=== PATIENT | male | born 1975 | race Caucasian/White ===

== ENCOUNTER 2016-06-13 13:01 | Outpatient (CLI) | payer MEDICARE, MEDICAID | END 2016-06-13 13:02 | disposition home or self-care (01) | DX: R07.9 Chest pain, unspecified (principal) ==

== ENCOUNTER 2016-08-25 13:19 | Emergency (ER) | payer MEDICARE, MEDICAID ==
--- NOTE | 2016-08-25 14:35 | ED Physician Documentation ---
History of Present Illness - Stated complaint Stated Complaint: FEVER/HEAD PRESSURE - Chief complaint Chief Complaint: Fever - History obtained from History obtained from: Patient - History of Present Illness Timing: How many days ago (3) Pain level max: 4 Pain level now: 4 Improved by: rest Worsened by: coughing - Additonal information Additional information: sinus pressure x 3 days. diffuse headache. fever to 101 last night. Took ibuprofen and dayquil, as well as sudafed. States not helping. [facility] was hospitalized 4-5 years ago for unknown febrile illness. Review of Systems Constitutional: reports: Fever Ears: denies: Ear pain Nose: reports: Sinus pressure / pain Throat: denies: Sore throat Cardiac: denies: Chest pain / pressure Respiratory: reports: Cough. denies: Hemoptysis, Wheezing GI: reports: Vomiting (once). denies: Abdominal Pain, Diarrhea : denies: Dysuria, Frequency, Hesitancy Skin: denies: Rash Musculoskeletal: reports: Neck pain (states neck is sore), Back pain (chronic) Neurologic: denies: Focal weakness, Numbness, Confused, Altered mental status, Head injury, LOC PD PAST MEDICAL HISTORY - Past Medical History Past Medical History: Yes Musculoskeletal: Chronic back pain Other Past Medical History: prior methadone and heroic ujse, none for 4 years - Past Surgical History Past Surgical History: Yes General: Appendectomy - Present Medications Home Medications: Ambulatory Orders Medication Instructions Recorded Confirmed Buprenorphine HCl/Naloxone HCl 1 tab PO DAILY 10/30/15 08/25/16 [Suboxone 4 mg-1 mg Sl Film] Azithromycin [Zithromax] 0 mg PO DAILY #6 tablet 08/25/16 - Allergies Allergies/Adverse Reactions: Allergies Allergy/AdvReac Type Severity Reaction Status Date / Time No Known Drug Allergies Allergy Verified 10/30/15 22:19 - Social History Does the pt smoke?: Yes Smoking Status: Current every day smoker Does the pt drink ETOH?: No Does the pt have substance abuse?: No - Immunizations Immunizations are current?: Yes - POLST Patient has POLST: No PD ED PE NORMAL - Vitals Vital signs reviewed: Yes - General General: Alert and oriented X 3, No acute distress, Well developed/nourished - HEENT HEENT: PERRL, Ears normal, Moist mucous membranes, Pharynx benign - Neck Neck: Supple, no meningeal sign, No adenopathy - Cardiac Cardiac: RRR, Strong equal pulses - Respiratory Respiratory: No respiratory distress, Other (Rhonchi in the left upper and lower lobes. Did not clear with cough. o/w normal) - Abdomen Abdomen: Soft, Non tender, Non distended - Back Back: No CVA TTP, No spinal TTP - Derm Derm: Warm and dry, No rash - Extremities Extremities: No edema - Neuro Neuro: Alert and oriented X 3 - Psych Psych: Normal mood, Normal affect Results - Vitals Vitals: Vital Signs - 24 hr 08/25/16 08/25/16 13:23 15:08 Temperature 37.1 C Heart Rate 123 H 86 Respiratory 18 16 Rate Blood Pressure 143/84 H 129/73 O2 Saturation 98 98 Oxygen O2 Source Room air - Labs Labs: Laboratory Tests 08/25/16 08/25/16 14:50 14:50 WBC 8.6 RBC 4.17 L Hgb 12.6 L Hct 36.0 L MCV 86.2 MCH 30.1 MCHC 35.0 RDW 14.2 Plt Count 152 MPV 9.0 Neut # 5.3 Lymph # 1.8 [place] # 1.1 H Eos # 0.3 Baso # 0.1 Absolute Nucleated RBC 0.00 Nucleated RBCs 0.0 Sodium 135 Potassium 4.2 Chloride 100 L Carbon Dioxide 26 Anion Gap 9.0 BUN 10 Creatinine 0.8 Estimated GFR (MDRD) 108 Glucose 95 Calcium 9.0 Total Bilirubin 0.5 AST 17 ALT 23 Alkaline Phosphatase 50 Total Protein 8.2 Albumin 3.8 Globulin 4.4 H Albumin/Globulin Ratio 0.9 L Lipase 26 - Rads (name of study) cxr Radiology: Prelim report reviewed, EMP read contemporaneously, See rad report ( Left upper lobe pneumonia) PD MEDICAL DECISION MAKING - ED course Complexity details: reviewed results, re-evaluated patient, considered differential, d/w patient ED course: Patient is a 41-year-old male who presents to the emergency department with fevers and cough. Found to have a left upper lobe pneumonia. Feels better after IV fluids. Will place on antibiotics for home and have him follow-up with his doctor. He will return if he worsens. No evidence of sepsis, pulmonary embolus. Patient is very well-appearing, nontoxic. Patient counseled regarding signs and symptoms for which I believe and urgent re- evaluation would be necessary. Patient with good understanding of and agreement to plan and is comfortable going home at this time This document was made in part using voice recognition software. While efforts are made to proofread this document, sound alike and grammatical errors may occur. Departure - Departure Disposition: 01 Home, Self Care Clinical Impression: Pneumonia Qualifiers: Pneumonia type: due to unspecified organism Laterality: left Lung location: upper lobe of lung Qualified Code(s): J18.1 - Lobar pneumonia, unspecified organism Condition: Good Instructions: ED Pneumonia Adult Follow-Up: Provider,Other [Primary Care Provider] - Within 1 week Prescriptions: Azithromycin [Zithromax] 0 mg PO DAILY #6 tablet Comments: Take all antibiotics until gone. Return if you worsen. Discharge Date/Time: 08/25/16 15:45
[2016-08-25] MEDS ORDERED: SODIUM CHLORIDE 0.9% 2,000 ML IV ONE (14:37)
[2016-08-25 15:08] VITALS: BP 129/73
[2016-08-25 15:10] LABS: BASOPHILS # (AUTO) 0.1 10^3/uL (0.0-0.1); BASOPHILS % (AUTO) 1.5 %; EOSINOPHILS # (AUTO) 0.3 10^3/uL (0.0-0.7); EOSINOPHILS % (AUTO) 3.3 %; HGB - HEMOGLOBIN 12.6 g/dL (14.0-18.0); LYMPHOCYTES # (AUTO) 1.8 10^3/uL (1.5-3.5); LYMPHOCYTES % (AUTO) 21.2 %; MEAN CORPUSCULAR HEMOGLOBIN 30.1 pg (27.0-31.0); MEAN CORPUSCULAR VOLUME 86.2 fL (80.0-94.0); MONOCYTES # (AUTO) 1.1 10^3/uL (0.0-1.0); NEUTROPHILS # (AUTO) 5.3 10^3/uL (1.5-6.6); RED BLOOD COUNT 4.17 10^6/uL (4.70-6.10); RED CELL DISTRIBUTION WIDTH 14.2 % (12.0-15.0); UNCORRECTED WHITE BLOOD COUNT 8.6 x10^3/uL; WHITE BLOOD COUNT 8.6 x10^3/uL (4.8-10.8)
--- NOTE | 2016-08-25 15:14 | XRAY Preliminary Report ---
Exam: XR Chest 2 View PA/LAT IMPRESSION: New left upper lobe pneumonia. [facility] SITE ID: [id number]
[2016-08-25 15:16] LABS: ALBUMIN/GLOBULIN RATIO 0.9 (1.0-2.2); BILIRUBIN,TOTAL 0.5 mg/dL (0.2-1.0); CREATININE 0.8 mg/dL (0.6-1.2); POTASSIUM 4.2 mmol/L (3.5-5.0); TOTAL PROTEIN 8.2 g/dL (6.7-8.2)
--- NOTE | 2016-08-25 15:17 | XRAY Report ---
EXAM: CHEST RADIOGRAPHY EXAM DATE: 08/25/2016 03:07 PM. CLINICAL HISTORY: Cough, fever. COMPARISON: 06/13/2016. TECHNIQUE: 2 views. FINDINGS: Lungs/Pleura: New left upper lobe consolidation consistent with pneumonia. Right lung is clear. No pl eural effusion or pneumothorax. Mediastinum: Heart and mediastinal contours are unremarkable. Other: None. IMPRESSION: New left upper lobe pneumonia. [facility] Referring Provider Line: [phone] SITE ID: [id number]
== END 2016-08-25 15:45 | disposition home or self-care (01) ==
LOC: ED 13:19
DX: J18.9 Pneumonia, unspecified organism (principal); F17.200 Nicotine dependence, unspecified, uncomplicated
CPT/HCPCS: 36415; 71020; 80053; 83690; 85025; 96360; 99283; 99284

== ENCOUNTER 2018-01-21 13:27 | Emergency (ER) | payer MEDICARE, MEDICAID ==
[2018-01-21 13:38] VITALS: BP 135/101
[2018-01-21] MEDS ORDERED: KETOROLAC 60 MG/2 ML VIAL IM STA (13:46)
--- NOTE | 2018-01-21 13:49 | ED Physician Documentation ---
PD HPI BACK INJURY - Stated complaint Stated Complaint: BACK PX - History obtained from History obtained from: Patient - History of Present Illness Location: Other (He was helping someone move a bed a few days ago and developed gradual onset right-sided low back pain that is worse with bending and twisting and he feels like it locking up on him every once in a while.) Review of Systems Constitutional: denies: Fever, Chills GI: denies: Abdominal Pain, Nausea, Vomiting Musculoskeletal: denies: Neck pain PD PAST MEDICAL HISTORY - Past Medical History Musculoskeletal: Chronic back pain - Past Surgical History Past Surgical History: Yes General: Appendectomy - Present Medications Home Medications: Ambulatory Orders Medication Instructions Recorded Confirmed Buprenorphine HCl/Naloxone HCl 1 tab PO DAILY 10/30/15 01/21/18 [Suboxone 4 mg-1 mg Sl Film] Cyclobenzaprine [Flexeril] 10 mg PO TID PRN #15 tablet 01/21/18 Meloxicam [Mobic] 7.5 mg PO BID PRN #20 tablet 01/21/18 - Allergies Allergies/Adverse Reactions: Allergies Allergy/AdvReac Type Severity Reaction Status Date / Time No Known Drug Allergies Allergy Verified 01/21/18 13:38 - Social History Does the pt smoke?: Yes Smoking Status: Current every day smoker Does the pt drink ETOH?: No Does the pt have substance abuse?: No - Immunizations Immunizations are current?: Yes - POLST Patient has POLST: No PD ED PE NORMAL - Vitals Vital signs reviewed: Yes - General General: Alert and oriented X 3 (Winces with motion, comfortable at rest.) - Abdomen Abdomen: Soft, Non tender - Back Back: No spinal TTP, Other ( Tender to the right paralumbar musculature. Some wincing especially with twisting of the lumbar area.The patient has equal and normal Achilles and patellar reflexes bilaterally. Normal sensation in all areas of the legs. Patient denies saddle anesthesia. Normal strength in flexion-extension at the ankles, knees, and flexion of the hips.) - Neuro Neuro: Alert and oriented X 3, Normal speech Results - Vitals Vitals: Vital Signs - 24 hr 01/21/18 13:35 Temperature 37.0 C Heart Rate 75 Respiratory 18 Rate Blood Pressure 135/101 H O2 Saturation 97 Oxygen O2 Source Room air PD MEDICAL DECISION MAKING - ED course ED course: This patient has seemingly uncomplicated musculoskeletal back pain. The patient has no "red flags." Specifically denies IV drug use, fevers, incontinence, saddle anesthesia. Spinal epidural abscess was considered, given that the patient has no fever, is not diabetic, has no spinal tenderness, does not use IV drugs, and has no bilateral neurologic symptoms, the diagnosis of spinal epidural abscess is considered exceedingly unlikely. Departure - Departure Disposition: 01 Home, Self Care Clinical Impression: Back strain Qualifiers: Encounter type: initial encounter Qualified Code(s): S39.012A - Strain of muscle, fascia and tendon of lower back, initial encounter Condition: Good Record reviewed to determine appropriate education?: Yes Instructions: ED Spasm Back No Trauma Prescriptions: Cyclobenzaprine [Flexeril] 10 mg PO TID PRN #15 tablet PRN Reason: Spasms Meloxicam [Mobic] 7.5 mg PO BID PRN #20 tablet PRN Reason: Pain Comments: Call your doctor to arrange a follow-up appointment, make the next available appointment. In the interim, return anytime if worse or if new symptoms develop. Your blood pressure was elevated today on check into the emergency department. This does not mean that you have hypertension, it is a common phenomenon to come to the emergency department and have elevated blood pressure. I recommend that you see your primary care physician within the week to have it rechecked when you are feeling better.
== END 2018-01-21 13:56 | disposition home or self-care (01) ==
LOC: ED 13:27
DX: S39.012A Strain of muscle, fascia and tendon of lower back, initial encounter (principal); X50.9XXA Other and unspecified overexertion or strenuous movements or postures, initial encounter; R03.0 Elevated blood-pressure reading, without diagnosis of hypertension; G89.29 Other chronic pain; F17.200 Nicotine dependence, unspecified, uncomplicated
CPT/HCPCS: 96372; 99283

== ENCOUNTER 2018-04-16 15:39 | Emergency (ER) | payer MEDICARE, MEDICAID ==
[2018-04-16] MEDS ORDERED: ONDANSETRON ODT 4 MG TABLET TL STA (16:28)
[2018-04-16] MEDS ORDERED: NAPROXEN 250 MG TABLET PO STA (16:28)
[2018-04-16] MEDS ORDERED: ALBUTEROL NEB 2.5 MG/3 ML INH STA (17:07)
[2018-04-16] MEDS ORDERED: DEXAMETHASONE 10 MG/ML VIAL PO STA (17:07)
--- NOTE | 2018-04-16 17:12 | ED Physician Documentation ---
PD HPI URI - Stated complaint Stated Complaint: FLU SYMPTOMS - Chief complaint Chief Complaint: Resp - Additional information Additional information: 43-year-old male presents the emergency department with nasal congestion, cough, body aches and sore throat for the past week. The patient feels somewhat improved but has ongoing cough and wheezing. The patient does smoke 1 pack of cigarettes a day. The patient denies chest pain or dyspnea on exertion. No other associated symptoms. Symptoms are described as moderate Review of Systems Constitutional: reports: Chills. denies: Fever Eyes: denies: Discharge Ears: denies: Ear pain Nose: reports: Congestion Throat: reports: Sore throat Respiratory: reports: Cough : denies: Dysuria Skin: denies: Rash Musculoskeletal: denies: Neck pain Neurologic: reports: Generalized weakness PD PAST MEDICAL HISTORY - Past Medical History Past Medical History: Yes Musculoskeletal: Chronic back pain - Past Surgical History Past Surgical History: Yes General: Appendectomy - Present Medications Home Medications: Ambulatory Orders Medication Instructions Recorded Confirmed Albuterol Sulf [Ventolin Hfa 1 - 2 puffs INH Q4HR PRN #1 inhaler 04/16/18 Inhaler] Azithromycin [Zithromax] 250 mg PO DAILY #4 tablet 04/16/18 Buprenorphine HCl/Naloxone HCl 1 each SL DAILY 04/16/18 04/16/18 [Suboxone 8-2 mg Sl tab] - Allergies Allergies/Adverse Reactions: Allergies Allergy/AdvReac Type Severity Reaction Status Date / Time No Known Drug Allergies Allergy Verified 04/16/18 16:59 - Social History Does the pt smoke?: Yes Smoking Status: Current every day smoker Does the pt drink ETOH?: No Does the pt have substance abuse?: No Substance Use and Type: Prescription Pills - Immunizations Immunizations are current?: Yes Immunizations: TDAP >10years/unknown - POLST Patient has POLST: No PD ED PE NORMAL - General General: Alert and oriented X 3, No acute distress - HEENT HEENT: Atraumatic, PERRL, EOMI, Ears normal - Neck Neck: Supple, no meningeal sign - Cardiac Cardiac: RRR, Strong equal pulses - Respiratory Respiratory: No respiratory distress, Other (Bilateral wheezing) - Derm Derm: Normal color - Extremities Extremities: No deformity - Neuro Neuro: Alert and oriented X 3, Normal speech - Psych Psych: Normal mood Results - Vitals Vitals: Vital Signs - 24 hr 01/16/19 16:09 Temperature 36.7 C Heart Rate 75 Respiratory 16 Rate Blood Pressure 138/90 H O2 Saturation 93 Oxygen O2 Source Room air - Labs Labs: Laboratory Tests 04/16/18 16:35 Influenza A (Rapid) Negative Influenza B (Rapid) Negative PD MEDICAL DECISION MAKING - ED course ED course: The patient's symptoms have been ongoing for close to 10 days, the patient is a smoker and is at higher risk for bacterial etiology for the source of his symptoms. Given the duration and his tobacco usage he will be placed on a course of antibiotics for a presumed bacterial etiology of his bronchitis. The patient appears appropriate for discharge and ongoing outpatient management. I discussed the findings and plan with the patient who understands and agrees to the plan Departure - Departure Disposition: 01 Home, Self Care Clinical Impression: Bronchitis Condition: Good Instructions: ED Upper Resp Infec Abx Tx Follow-Up: Holden Nayak MD [Primary Care Provider] - Within 1 week Prescriptions: Albuterol Sulf [Ventolin Hfa Inhaler] 1 - 2 puffs INH Q4HR PRN #1 inhaler PRN Reason: Shortness Of Air/Wheezing Azithromycin [Zithromax] 250 mg PO DAILY #4 tablet Comments: Please stop smoking Please return for any worsening or any concerns
[2018-04-16] MEDS ORDERED: AZITHROMYCIN 250 MG TABLET PO STA (18:00)
--- NOTE | 2018-04-16 19:18 | ED Physician Documentation ---
ED Addendum - Addendum Addendum: 04/16/18 19:16 The patient was seen by the other provider in the ER and was up for discharge. The nurse told me that he was still having some wheezing and his oxygenation was wavering between 98 down to as low as 88 or 89 at times. It seemed to be a good reading on the sat probe. The patient was feeling better after his prior nebs. He had been given steroids. He did not feel that he needed another nebulizer. I suggested a chest x-ray but he declined. His sats are leveling out and more consistently in the mid 90s. He may have just taken a little bit more time for the bronchospasm to relieve after his prior nebs. He does seem stable for discharge and will continue his prior discharge instructions.
[2018-04-16 19:31] VITALS: BP 139/88
== END 2018-04-16 19:11 | disposition home or self-care (01) ==
LOC: ED 15:39
DX: J20.9 Acute bronchitis, unspecified (principal); F17.200 Nicotine dependence, unspecified, uncomplicated
CPT/HCPCS: 87275; 87276; 94640; 94664; 99283; A9270; Q0162

== ENCOUNTER 2019-02-20 13:38 | Emergency (ER) | payer MEDICARE, MEDICAID ==
--- NOTE | 2019-02-20 16:42 | ED Physician Documentation ---
PD HPI SKIN - Stated complaint Stated Complaint: R LEG SWELLING - Chief complaint Chief Complaint: Wound - History obtained from History obtained from: Patient - History of Present Illness Timing - onset: Yesterday (he was carrying some pieces of wood/lumber and noted onset of left posterior thigh pain, sharp like a stab/needle poke. He noted a red spot there. The area got larger in redness and tenderness and is worse today. No nausea nor fevers. He consider if he got spider bite but did not see an insect per se. Has had prior MRSA infections but this is quicker onset that those had been.) Timing - duration: Days (1) Timing - details: Abrupt onset, Still present Location: RLE (posterior upper thigh) Quality / character: Itchy, Painful, Discolored (red), Swelling. No: Vesicular Associated symptoms: No: Fever, Myalgias, Abd pain, N/V/D Recently seen: Not recently seen Review of Systems Constitutional: denies: Fever, Chills, Myalgias GI: denies: Nausea, Vomiting, Diarrhea Neurologic: denies: Focal weakness, Numbness PD PAST MEDICAL HISTORY - Past Medical History Past Medical History: Yes Cardiovascular: None Respiratory: Asthma Neuro: None Endocrine/Autoimmune: None Musculoskeletal: Chronic back pain - Past Surgical History Past Surgical History: Yes General: Appendectomy - Present Medications Home Medications: Ambulatory Orders Medication Instructions Recorded Confirmed Albuterol Sulf [Ventolin Hfa 1 - 2 puffs INH Q4HR PRN #1 inhaler 04/16/18 Inhaler] Azithromycin [Zithromax] 250 mg PO DAILY #4 tablet 04/16/18 Buprenorphine HCl/Naloxone HCl 1 each SL DAILY 04/16/18 04/16/18 [Suboxone 8-2 mg Sl tab] Hydrocodone/Acetaminophen 1 - 2 each PO Q6H PRN #14 tablet 02/20/19 [Hydrocodon-Acetaminophen 5-325] Sulfamethox/Trimeth 800/160 1 each PO BID #14 tablet 02/20/19 [Bactrim Ds 800/160] dexAMETHasone [Decadron] 4 mg PO DAILY #5 tablet 02/20/19 - Allergies Allergies/Adverse Reactions: Allergies Allergy/AdvReac Type Severity Reaction Status Date / Time No Known Drug Allergies Allergy Verified 02/20/19 13:50 - Social History Does the pt smoke?: Yes Smoking Status: Current every day smoker Does the pt drink ETOH?: No Does the pt have substance abuse?: No - Immunizations Immunizations are current?: Yes Immunizations: TDAP >10years/unknown - POLST Patient has POLST: No PD ED PE NORMAL - Vitals Vital signs reviewed: Yes - General General: Alert and oriented X 3, Well developed/nourished, Other (appears in discomfort) - Cardiac Cardiac: RRR, No murmur - Respiratory Respiratory: Clear bilaterally - Abdomen Abdomen: Soft, Non tender - Back Back: No CVA TTP - Derm Derm: Normal color, Warm and dry - Extremities Extremities: Other (posterior upper right thigh with demarcated edge area of redness, slightly raised, without vesicles, tender. Central spot of redness with small pointing. No drainage. Consider local skin infection such as "pimple" versus bug sting site. no FB.) Results - Vitals Vitals: Vital Signs - 24 hr 02/20/19 02/20/19 13:50 17:29 Temperature 36.8 C 36.5 C Heart Rate 67 61 Respiratory 17 18 Rate Blood Pressure 134/89 H 149/84 H O2 Saturation 97 98 Oxygen O2 Source Room air PD MEDICAL DECISION MAKING - ED course Complexity details: considered differential (patient having pain at thigh, and I offered pain meds. Pharmacy subsequently called and said he has recent Rx for Buprenorphine, so I changed the Rx to Ibuprofen. I had not seen that med on his list at the time of discharge and he did not mention it. ), d/w patient (could have been bee sting, less likely spider with prompt onset and with it feeling like a stab pain. Could have been developing a skin infection and just hit tipping point of tenderness. So consider local venom effect vs cellulitis. Bedside US did not show any local fluid collection for draining. No air noted in tissue. ) Departure - Departure Disposition: 01 Home, Self Care Clinical Impression: Cellulitis of thigh Condition: Stable Record reviewed to determine appropriate education?: Yes Instructions: ED Infec Skin Cellulitis Prescriptions: dexAMETHasone [Decadron] 4 mg PO DAILY #5 tablet Hydrocodone/Acetaminophen [Hydrocodon-Acetaminophen 5-325] 1 - 2 each PO Q6H PRN #14 tablet PRN Reason: pain Sulfamethox/Trimeth 800/160 [Bactrim Ds 800/160] 1 each PO BID #14 tablet Comments: If this is a local reaction to venom, such as a bee sting or spider bite, then peak in redness and swelling at about a day or 2 and then improve. He would be treated with anti-inflammatories and antihistamines and pain medicine as needed. If this is an infection spreading, then we want to use antibiotics as well. We will treated as potentially both with a combination of medicines. Bactrim antibiotic twice daily for a week. Decadron inflammation daily for 5 days. Use some antihistamine such as Benadryl every 6 hours if needed for itchiness. Add Tylenol or ibuprofen if needed for pains and hydrocodone if needed for worse pain. Recheck if not at starting to improve or at least not expanding more into tomorrow. Some slight increased tonight may be expected as it takes a little bit for the medications to slow the process. Again recheck if not improving into tomorrow and the next day and fully resolved after several days or so. Discharge Date/Time: 02/20/19 17:34
[2019-02-20] MEDS ORDERED: CHERRY SYRUP 10 ML UDC PO ONE (17:09)
[2019-02-20] MEDS ORDERED: DEXAMETHASONE 10 MG/ML VIAL PO STA (17:09)
[2019-02-20] MEDS ORDERED: SULFAMETH/TRIMETH DS 800/160 MG TABLET PO STA (17:09)
[2019-02-20] MEDS ORDERED: IBUPROFEN 600 MG TABLET PO STA (17:09)
[2019-02-20] MEDS ORDERED: diphenhydrAMINE 25 MG CAPSULE PO STA (17:09)
[2019-02-20] MEDS ORDERED: HYDROcod/ACETAM 5/325 MG TABLET PO STA (17:10)
[2019-02-20 17:29] VITALS: BP 149/84
== END 2019-02-20 17:34 | disposition home or self-care (01) ==
LOC: ED 13:38
DX: L03.116 Cellulitis of left lower limb (principal); Z86.14 Personal history of Methicillin resistant Staphylococcus aureus infection; F17.200 Nicotine dependence, unspecified, uncomplicated
CPT/HCPCS: 99282; 99284; A9270

== ENCOUNTER 2020-09-12 09:11 | Emergency (ER) | payer MEDICARE, MEDICAID ==
[2020-09-12] MEDS ORDERED: LORazepam 2 MG/ML VIAL IVP STA (09:32)
[2020-09-12] MEDS ORDERED: ONDANSETRON 4 MG/2 ML VIAL IVP STA (09:32)
--- NOTE | 2020-09-12 09:33 | ED Physician Documentation ---
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 He states and notes that it does feel like narcotic withdrawal but has not missed any doses of his Suboxone, in fact took an extra 1 this morning inking that would help without any relief. He was camping, but just 1 day and did not drink any wild water sources. No sick contacts. Review of Systems Constitutional: denies: Fever, Chills, Sweats Throat: reports: Reviewed and negative Cardiac: reports: Reviewed and negative Respiratory: reports: Reviewed and negative PD PAST MEDICAL HISTORY - Past Medical History Cardiovascular: None Respiratory: Asthma Neuro: None Endocrine/Autoimmune: None Musculoskeletal: Chronic back pain - Past Surgical History Past Surgical History: Yes General: Appendectomy - Present Medications Home Medications: Ambulatory Orders Medication Instructions Recorded Confirmed Buprenorphine HCl/Naloxone HCl 1 each SL DAILY 04/16/18 09/12/20 [Suboxone 8-2 mg Sl tab] - Allergies Allergies/Adverse Reactions: Allergies Allergy/AdvReac Type Severity Reaction Status Date / Time No Known Drug Allergies Allergy Verified 09/12/20 09:22 - Social History Does the pt smoke?: Yes Smoking Status: Current every day smoker Does the pt drink ETOH?: No Does the pt have substance abuse?: No - Immunizations Immunizations are current?: Yes Immunizations: TDAP >10years/unknown - POLST Patient has POLST: No PD ED PE NORMAL - Vitals Vital signs reviewed: Yes - General General: Alert and oriented X 3, Other (He appears uncomfortable, he is pacing.) - HEENT HEENT: PERRL, EOMI - Neck Neck: Supple, no meningeal sign, No bony TTP - Cardiac Cardiac: RRR, No murmur - Respiratory Respiratory: No respiratory distress, Clear bilaterally - Abdomen Abdomen: Normal bowel sounds, Soft, Non tender - Derm Derm: Normal color, Warm and dry - Extremities Extremities: No edema, No calf tenderness / cord - Neuro Neuro: Alert and oriented X 3, Normal speech Results - Vitals Vitals: Vital Signs - 24 hr 09/12/20 09/12/20 09/12/20 09:17 10:21 10:35 Temperature 36.5 C Heart Rate 75 81 81 Respiratory 18 16 15 Rate Blood Pressure 154/105 H 160/103 H 166/99 H O2 Saturation 98 95 92 09/12/20 11:03 Temperature Heart Rate Respiratory 16 Rate Blood Pressure O2 Saturation 94 Oxygen O2 Source Room air - Labs Labs: Laboratory Tests 09/12/20 09/12/20 09/12/20 09:27 09:45 09:45 WBC 11.4 H RBC 4.82 Hgb 14.3 Hct 43.9 MCV 91.1 MCH 29.7 MCHC 32.6 RDW 13.4 Plt Count 163 MPV 11.6 H Neut # (Auto) 8.8 H Lymph # (Auto) 1.7 [place] # (Auto) 0.5 Eos # (Auto) 0.1 Baso # (Auto) 0.1 Absolute Nucleated RBC 0.00 Nucleated RBC % 0.0 Sodium 140 Potassium 4.0 Chloride 105 Carbon Dioxide 26 Anion Gap 9.0 BUN 17 Creatinine 0.8 Estimated GFR (MDRD) 106 Glucose 119 H Calcium 9.9 Total Bilirubin 0.5 AST 17 ALT 22 Alkaline Phosphatase 49 Total Protein 7.9 Albumin 4.6 Globulin 3.3 Albumin/Globulin Ratio 1.4 Lipase 35 Urine Color DARK YELLOW Urine Clarity CLEAR Urine pH 8.5 H Ur Specific [place] 1.015 Urine Protein 30 H Urine Glucose (UA) NEGATIVE Urine Ketones NEGATIVE Urine Occult Blood NEGATIVE Urine Nitrite NEGATIVE Urine Bilirubin NEGATIVE Urine Urobilinogen 0.2 (NORMAL) Ur Leukocyte Esterase NEGATIVE Urine RBC None Seen Urine WBC 0-3 Ur Squamous Epith Cells RARE Squamous Urine Bacteria None Seen Ur Microscopic Review INDICATED Urine Culture Comments NOT INDICATED Urine Opiates Screen NEGATIVE Ur Oxycodone Screen NEGATIVE Urine Methadone Screen NEGATIVE Ur Propoxyphene Screen NEGATIVE Ur Barbiturates Screen NEGATIVE Ur Tricyclics Screen NEGATIVE Ur Phencyclidine Scrn NEGATIVE Ur Amphetamine Screen NEGATIVE U Methamphetamines Scrn NEGATIVE U Benzodiazepines Scrn NEGATIVE Urine Cocaine Screen NEGATIVE U Cannabinoids Screen NEGATIVE Ethyl Alcohol < 5.0 PD MEDICAL DECISION MAKING - ED course ED course: 45-year-old gentleman presents with complaints of skin crawling, nausea diarrhea and stomach cramps. His symptoms are consistent with narcotic withdrawal even though he denies any reason to be withdrawing. He was agitated and administered some Ativan after which she was calm but complained of no relief of the skin crawling. After that he was administered a single dose of IV buprenorphine with complete relief of his symptoms. Departure - Departure Disposition: 01 Home, Self Care Clinical Impression: Paresthesia of skin, Nausea Diarrhea Qualifiers: Diarrhea type: unspecified type Qualified Code(s): R19.7 - Diarrhea, unspecified Condition: Good Record reviewed to determine appropriate education?: Yes Comments: Your symptoms were consistent with narcotic withdrawal, not sure why but a dose of IV buprenorphine seems to have helped. Return if worsening. Do not drive today. Follow-up with your regular physician, next available appointment.
[2020-09-12 09:58] LABS: MUDS CUTOFF CONCENTRATIONS CUTOFF CONC BELOW:
[2020-09-12 10:03] LABS: BASOPHILS # (AUTO) 0.1 10^3/uL (0.0-0.1); BASOPHILS % (AUTO) 0.8 %; EOSINOPHILS # (AUTO) 0.1 10^3/uL (0.0-0.7); EOSINOPHILS % (AUTO) 1.1 %; HCT - HEMATOCRIT 43.9 % (42.0-52.0); HGB - HEMOGLOBIN 14.3 g/dL (14.0-18.0); LYMPHOCYTES # (AUTO) 1.7 10^3/uL (1.5-3.5); MEAN CORPUSCULAR HEMOGLOBIN 29.7 pg (27.0-31.0); MEAN CORPUSCULAR HGB CONC 32.6 g/dL (32.0-36.0); MEAN CORPUSCULAR VOLUME 91.1 fL (80.0-94.0); MEAN PLATELET VOLUME 11.6 fL (7.4-11.4); MONOCYTES # (AUTO) 0.5 10^3/uL (0.0-1.0); MONOCYTES % (AUTO) 4.7 %; NEUTROPHILS # (AUTO) 8.8 10^3/uL (1.5-6.6); NEUTROPHILS % (AUTO) 77.8 %; PLT - PLATELET COUNT 163 10^3/uL (130-450); RED BLOOD COUNT 4.82 10^6/uL (4.70-6.10); RED CELL DISTRIBUTION WIDTH 13.4 % (12.0-15.0); WHITE BLOOD COUNT 11.4 x10^3/uL (4.8-10.8)
[2020-09-12 10:06] LABS: BILIRUBIN,URINE NEGATIVE (NEGATIVE); GLUCOSE, URINE (UA) NEGATIVE (NEGATIVE); KETONES,URINE (UA) NEGATIVE (NEGATIVE); LEUKOCYTE ESTERASE, URINE NEGATIVE (NEGATIVE); NITRITE,URINE NEGATIVE (NEGATIVE); OCCULT BLOOD,URINE NEGATIVE (NEGATIVE); PH,URINE 8.5 PH (5.0-7.5); PROTEIN,URINE 30 mg/dL (NEGATIVE); UROBILINOGEN,URINE 0.2 (NORMAL) E.U./dL (NORMAL)
[2020-09-12 10:09] LABS: CLARITY,URINE CLEAR (CLEAR)
[2020-09-12] MEDS ORDERED: BUPRENORPHINE 0.3 MG/ML VIAL IVP ONE (10:09)
[2020-09-12 10:18] LABS: AMPHETAMINE SCREEN,URINE NEGATIVE (NEGATIVE); BARBITURATE SCREEN,UR NEGATIVE (NEGATIVE); BENZODIAZEPINES SCREEN, URINE NEGATIVE (NEGATIVE); COCAINE SCREEN URINE NEGATIVE (NEGATIVE); METHADONE SCREEN, URINE NEGATIVE (NEGATIVE); METHAMPHETAMINES SCREEN, URINE NEGATIVE (NEGATIVE); OPIATE SCREEN, URINE NEGATIVE (NEGATIVE); OXYCODONE SCREEN, URINE NEGATIVE (NEGATIVE); PROPOXYPHENE SCREEN, URINE NEGATIVE (NEGATIVE); THC CANNABINOID SCREEN, URINE NEGATIVE (NEGATIVE); TRICYCLIC ANTIDEPRESSANT,URINE NEGATIVE (NEGATIVE)
[2020-09-12 10:21] LABS: RBC,URINE None Seen /HPF (0-5); WBC,URINE 0-3 /HPF (0-3)
[2020-09-12 10:22] LABS: BACTERIA,URINE None Seen /HPF (None Seen); SQUAMOUS EPITHELIAL CELL,UR RARE Squamous (<= Few)
[2020-09-12 10:24] LABS: ALBUMIN 4.6 g/dL (3.2-5.5); ALBUMIN/GLOBULIN RATIO 1.4 (1.0-2.2); ALKALINE PHOSPHATASE 49 IU/L (42-121); ALT ALANINE AMINOTRANSFERASE 22 IU/L (10-60); AST ASPARTATE AMINOTRANSFERASE 17 IU/L (10-42); BILIRUBIN,TOTAL 0.5 mg/dL (0.2-1.0); BUN - BLOOD UREA NITROGEN 17 mg/dL (6-20); CALCIUM 9.9 mg/dL (8.5-10.3); CARBON DIOXIDE - CO2 26 mmol/L (21-32); CHLORIDE 105 mmol/L (101-111); CREATININE 0.8 mg/dL (0.6-1.2); ETOH - ETHANOL < 5.0 mg/dL; GFR - MDRD 106 (>89); GLUCOSE 119 mg/dL (70-100); LIPASE 35 U/L (22-51); SODIUM 140 mmol/L (135-145); TOTAL PROTEIN 7.9 g/dL (6.7-8.2)
[2020-09-12 11:27] VITALS: BP 157/98
== END 2020-09-12 11:34 | disposition home or self-care (01) ==
LOC: ED 09:11
DX: R20.2 Paresthesia of skin (principal); R11.0 Nausea; R19.7 Diarrhea, unspecified; R10.9 Unspecified abdominal pain; R45.1 Restlessness and agitation; F17.200 Nicotine dependence, unspecified, uncomplicated
CPT/HCPCS: 36415; 80053; 80306; 81001; 83690; 85025; 96374; 96375; 99284; G0480; J0592; J2060; 80320; 81003; 87086

== ENCOUNTER 2020-09-13 00:59 | Emergency (ER) | payer MEDICARE, MEDICAID ==
--- NOTE | 2020-09-13 01:05 | ED Physician Documentation ---
History of Present Illness - Stated complaint Stated Complaint: NAUSEA, DIZZY, VOMIT, DIARRHEA, ITCHY - History obtained from History obtained from: Patient - History of Present Illness Timing: Today - Additonal information Additional information: Seen earlier for today for narcotic withdrawal symptoms given a dose of buprenorphine with resolution of his symptoms. He reports that he has used his Suboxone again this evening and this seemed to have precipitated a similar reaction to what he had earlier in the day. He is not feeling well is nauseated and had skin prickling. He has a prescriber for his Suboxone and wants to change this medication. He has been using it for 10 years without problems. He now has developed this unusual problem. He feels like he is in withdrawal. Review of Systems Constitutional: denies: Fever Eyes: denies: Decreased vision Ears: denies: Ear pain Nose: denies: Congestion Throat: denies: Sore throat Cardiac: denies: Chest pain / pressure, Palpitations Respiratory: denies: Dyspnea, Cough GI: reports: Nausea, Diarrhea. denies: Abdominal Pain : denies: Dysuria, Frequency PD PAST MEDICAL HISTORY - Past Medical History Cardiovascular: None Respiratory: Asthma Neuro: None Endocrine/Autoimmune: None Musculoskeletal: Chronic back pain - Past Surgical History Past Surgical History: Yes General: Appendectomy - Present Medications Home Medications: Ambulatory Orders Medication Instructions Recorded Confirmed Buprenorphine HCl/Naloxone HCl 1 each SL DAILY 04/16/18 09/12/20 [Suboxone 8-2 mg Sl tab] - Allergies Allergies/Adverse Reactions: Allergies Allergy/AdvReac Type Severity Reaction Status Date / Time No Known Drug Allergies Allergy Verified 09/12/20 09:22 - Social History Does the pt smoke?: Yes Smoking Status: Current every day smoker Does the pt drink ETOH?: No Does the pt have substance abuse?: No - Immunizations Immunizations are current?: Yes Immunizations: TDAP >10years/unknown - POLST Patient has POLST: No PD ED PE NORMAL - Vitals Vital signs reviewed: Yes - General General: Alert and oriented X 3, Well developed/nourished, Other (The patient appears anxious ) - HEENT HEENT: Atraumatic, PERRL, EOMI - Cardiac Cardiac: RRR, No murmur - Respiratory Respiratory: No respiratory distress, Clear bilaterally - Abdomen Abdomen: Normal bowel sounds, Soft, Non tender - Back Back: No CVA TTP, No spinal TTP - Derm Derm: Normal color, Warm and dry, No rash - Extremities Extremities: No deformity, No edema - Neuro Neuro: Alert and oriented X 3, director of sales and marketing 2-12 intact, No motor deficit, No sensory deficit, Normal speech Eye Opening: Spontaneous Motor: Obeys Commands Verbal: Oriented GCS Score: 15 - Psych Psych: Other (The mood is anxious the affect is flat) Results - Vitals Vitals: Oxygen O2 Source Room air PD MEDICAL DECISION MAKING - ED course Complexity details: reviewed results, re-evaluated patient, considered differential, d/w patient ED course: 45-year-old male appears to be going to withdrawal after taking Suboxone. This has happened to him earlier in the day. He relates that he has only a few of his Suboxone left that he has in his safe and he is wondering if it is safe may have gotten hot. His description of events is consistent with the buprenorphine in the Suboxone being inactive and the naloxone being active. He is finding more withdrawal symptoms when he takes the Suboxone. He was given a shot of buprenorphine earlier in the day with resolution of his symptoms. Again here this evening we have given the patient 0.3 mg of buprenorphine IM. He has improvement in his symptoms. I have encouraged the patient to follow-up with his prescriber regarding this sequence and obtain new Suboxone or change his medication as he is considering. Departure - Departure Disposition: 01 Home, Self Care Condition: Good Discharge Date/Time: 09/13/20 04:17
[2020-09-13] MEDS ORDERED: BUPRENORPHINE 0.3 MG/ML VIAL ONE (02:03)
[2020-09-13] MEDS ORDERED: ACETAMINOPHEN 325 MG TABLET PO ONE (02:30)
== END 2020-09-13 04:17 | disposition home or self-care (01) ==
LOC: ED 00:59
DX: F11.23 Opioid dependence with withdrawal (principal); R11.2 Nausea with vomiting, unspecified; R19.7 Diarrhea, unspecified; R20.2 Paresthesia of skin; T40.2X5A Adverse effect of other opioids, initial encounter; F17.200 Nicotine dependence, unspecified, uncomplicated
CPT/HCPCS: 99282; 99283

== ENCOUNTER 2020-09-13 11:16 | Emergency (ER) | payer MEDICARE, MEDICAID ==
[2020-09-13 11:23] VITALS: BP 154/101
[2020-09-13] MEDS ORDERED: BUPRENORPHINE 0.3 MG/ML VIAL IM ONE (11:41)
--- NOTE | 2020-09-13 11:46 | ED Physician Documentation ---
History of Present Illness - Stated complaint Stated Complaint: STOMACH PX N/V - Chief complaint Chief Complaint: Abd Pain - Additonal information Additional information: 45-year-old male returns to the emergency department For the third time in just over 24 hours for concerns of opioid withdrawal. He was seen yesterday morning by my colleague Dr. Poole for concerns of opioid withdrawal though he had not missed any doses of his Suboxone. He had reported nausea vomiting diarrhea chills the sensation that his skin was itchy and crawling. He did have screening labs completed that did not show any acute worrisome abnormalities. He was given a one-time injection of buprenorphine here in the emergency department with complete resolution of the symptoms. He returned back to his campsite and did take his typical dose of Suboxone but again found that he was having vomiting fevers chills the sensation of skin crawling and diarrhea. Therefore he returned to the ER late yesterday evening and early this morning and received a second dose of buprenorphine. There is concerned that his Suboxone may have gotten hot thus in activating the buprenorphine component of the Suboxone giving him just uninhibited and naloxone. He reportedly felt 100% better when he was discharged from the emergency department early this a.m. and he went home and slept. This morning he woke up took his typical dose of Suboxone but now again presents with the same symptoms as the last 2 visits. He is unable to contact his Suboxone prescriber as he is out of office today but the patient reports to me that he does have a new prescription waiting him at the way in [place]. He is requesting only an additional dose of buprenorphine here in the ER. Review of Systems Constitutional: reports: Chills, Myalgias Eyes: reports: Reviewed and negative Ears: reports: Reviewed and negative Nose: reports: Reviewed and negative Throat: reports: Reviewed and negative Cardiac: reports: Reviewed and negative Respiratory: denies: Dyspnea, Cough GI: reports: Nausea, Vomiting, Diarrhea. denies: Abdominal Pain : denies: Dysuria, Frequency, Hesitancy Skin: denies: Rash, Lesions Musculoskeletal: denies: Neck pain, Back pain Neurologic: denies: Generalized weakness, Numbness, Syncope, Seizure, Headache, Head injury PD PAST MEDICAL HISTORY - Past Medical History Cardiovascular: None Respiratory: Asthma Neuro: None Endocrine/Autoimmune: None Musculoskeletal: Chronic back pain - Past Surgical History Past Surgical History: Yes General: Appendectomy - Present Medications Home Medications: Ambulatory Orders Medication Instructions Recorded Confirmed Buprenorphine HCl/Naloxone HCl 1 each SL DAILY 04/16/18 09/13/20 [Suboxone 8-2 mg Sl tab] - Allergies Allergies/Adverse Reactions: Allergies Allergy/AdvReac Type Severity Reaction Status Date / Time No Known Drug Allergies Allergy Verified 09/12/20 09:22 - Social History Does the pt smoke?: Yes Smoking Status: Current every day smoker Does the pt drink ETOH?: No Does the pt have substance abuse?: No - Immunizations Immunizations are current?: Yes Immunizations: TDAP >10years/unknown - POLST Patient has POLST: No PD ED PE EXPANDED - General General: Alert, No acute distress, Well developed/nourished - Cardiac Cardiac: Regular Rate, Radial strong equal, Cap refill < 2 sec. No: Murmur Present - Respiratory Respiratory: Clear to ausultation vivi. No: Distress, Labored - Abdomen Abdomen: Hyperactive BS. No: Tender to palpation - Derm Derm: Normal color, Warm and dry. No: Rash - Extremities Extremities: Normal. No: Deformity, Tenderness - Neuro Neuro: Alert and Oriented X 3, CNII-XII intact, Normal gait, Normal finger nose, Normal speech - GCS Eye Opening: Spontaneous Motor: Obeys Commands Verbal: Oriented Total: 15 Results - Vitals Vitals: Vital Signs - 24 hr 09/13/20 11:18 Temperature 36.6 C Heart Rate 80 Respiratory 20 Rate Blood Pressure 154/101 H O2 Saturation 98 Oxygen O2 Source Room air PD MEDICAL DECISION MAKING - ED course Complexity details: reviewed old records, reviewed results, re-evaluated patient, d/w patient ED course: 45-year-old male returns to the emergency department with nausea chills shaking sensation that his skin is crawling as well as diarrhea. This is his third ER visit in just over 24 h. There is concerned that he could be undergoing opioid withdrawal though he has not missed any of his Suboxone doses and in fact has taken extra. There was report that perhaps the Suboxone had gotten hot as it was in a safe next to a hot water heater thus potentially inactivating the opioid component of it. This gentleman was given an additional dose of buprenorphine here in the emergency department. With improvement in his symptoms. He is encouraged to fill a new Suboxone subscription today at [facility]. He is interested in titrating off of this medication however this does need to be discussed with his prescriber. Patient is hesitant to remain on Suboxone as he does not like what is occurring to him right now but I have encouraged him to do a taper as opposed to suddenly quitting. He was advised that if the symptoms continue he can return to the ER for further evaluation. Departure - Departure Disposition: Home, Self Care Clinical Impression: Opioid withdrawal Condition: Stable Record reviewed to determine appropriate education?: Yes Comments: Scott please fill the prescription for the new Suboxone dose at [facility] today. It is important you continue to contact your Suboxone prescriber to discuss these recent ER visits. A taper off of Suboxone and onto a different medication should be discussed with your provider. Return to the emergency department for fevers, suddenly severe or different abdominal pain or if you feel your symptoms are not improving.
== END 2020-09-13 12:51 | disposition home or self-care (01) ==
LOC: ED 11:16
DX: F11.23 Opioid dependence with withdrawal (principal); R11.2 Nausea with vomiting, unspecified; R19.7 Diarrhea, unspecified; R20.2 Paresthesia of skin; R68.83 Chills (without fever); T40.2X5A Adverse effect of other opioids, initial encounter; F17.200 Nicotine dependence, unspecified, uncomplicated
CPT/HCPCS: 96372; 99282; 99283; A9270; J0592

== ENCOUNTER 2021-02-26 08:23 | Emergency (ER) | payer MEDICARE, MEDICAID ==
--- NOTE | 2021-02-26 08:42 | ED Physician Documentation ---
PD HPI ABD PAIN - Stated complaint Stated Complaint: N/V,LOW BACK PX AND ABD PX - Chief complaint Chief Complaint: Abd Pain - History obtained from History obtained from: Patient - History of Present Illness Timing - onset: How many days ago (2) Timing - duration: Days (2) Timing - details: Abrupt onset (onset upper abd discomfort/cramps with nausea, v omiting several times over 2 days, and with "explosive" diarrhear today.), Still present Quality: Cramping, Aching, Pain Location: RUQ, Epigastric Radiation: Upper back. No: Chest Improved by: No: Eating, Vomiting, Position Worsened by: Eating, Moving, Breathing Associated symptoms: Nausea, Vomiting, Diarrhea (today), Loss of appetite. No: Fever, Melena, Near syncope / syncope Similar symptoms before: Has not had sx before Recently seen: Not recently seen (was in ER over summer with nausea and vomiting related to Suboxone med problem (it inactivated in the heat?) and better with new Rx. No similar conditions now. He states symptoms feel very different.) Review of Systems Constitutional: reports: Myalgias. denies: Fever, Chills Nose: denies: Rhinorrhea / runny nose, Congestion Throat: denies: Sore throat Respiratory: denies: Cough GI: reports: Abdominal Pain, Nausea, Vomiting, Diarrhea (today). denies: Abdominal Swelling, Constipation, Hematemesis : denies: Dysuria Neurologic: reports: Generalized weakness. denies: Near syncope Immunocompromised: denies: Immunocompromised PD PAST MEDICAL HISTORY - Past Medical History Cardiovascular: None Respiratory: Asthma Neuro: None Endocrine/Autoimmune: None Musculoskeletal: Chronic back pain - Past Surgical History Past Surgical History: Yes General: Appendectomy - Present Medications Home Medications: Ambulatory Orders Medication Instructions Recorded Confirmed Buprenorphine HCl/Naloxone HCl 1 each SL DAILY 04/16/18 09/13/20 [Suboxone 8-2 mg Sl tab] Famotidine [Pepcid] 20 mg PO BID #30 tablet 02/26/21 Lidocaine Viscous 2% [Xylocaine 5 ml PO Q4H PRN #100 ml 02/26/21 Viscous 2%] Ondansetron Odt [Zofran] 4 mg TL Q6H PRN #20 tablet 02/26/21 - Allergies Allergies/Adverse Reactions: Allergies Allergy/AdvReac Type Severity Reaction Status Date / Time No Known Drug Allergies Allergy Verified 02/26/21 08:37 - Social History Does the pt smoke?: Yes Smoking Status: Current every day smoker Does the pt drink ETOH?: No Does the pt have substance abuse?: No - Immunizations Immunizations are current?: Yes Immunizations: TDAP >10years/unknown - POLST Patient has POLST: No PD ED PE NORMAL - Vitals Vital signs reviewed: Yes - General General: Alert and oriented X 3, Well developed/nourished, Other (appears uncomfortable) - HEENT HEENT: PERRL (nonicteric), Pharynx benign - Neck Neck: Supple, no meningeal sign, No adenopathy - Cardiac Cardiac: RRR (regular with mild tachycardia.), No murmur - Respiratory Respiratory: Clear bilaterally - Abdomen Abdomen: Soft, Non distended, No organomegaly, Other (tender mid upper abd and slighty to right. No percussion nor rebound tenderness. ). No: Normal bowel sounds (slightly decreased) Results - Vitals Vitals: Vital Signs - 24 hr 02/26/21 02/26/21 02/26/21 08:31 09:42 11:00 Temperature 36.5 C Heart Rate 102 H 67 59 L Respiratory 16 16 16 Rate Blood Pressure 151/94 H 141/88 H 137/77 H O2 Saturation 94 94 96 Oxygen O2 Source Room air - Labs Labs: Laboratory Tests 02/26/21 02/26/21 02/26/21 08:46 08:46 09:10 WBC 11.4 H RBC 5.43 Hgb 16.4 Hct 49.1 MCV 90.4 MCH 30.2 MCHC 33.4 RDW 13.8 Plt Count 219 MPV 11.9 H Neut # (Auto) 7.3 H Lymph # (Auto) 2.9 [place] # (Auto) 0.9 Eos # (Auto) 0.2 Baso # (Auto) 0.1 Absolute Nucleated RBC 0.00 Nucleated RBC % 0.0 Sodium 139 Potassium 4.0 Chloride 98 L Carbon Dioxide 29 Anion Gap 12.0 BUN 20 Creatinine 1.0 Estimated GFR (MDRD) 82 L Glucose 119 H Calcium 10.4 H Total Bilirubin 1.3 H AST 19 ALT 26 Alkaline Phosphatase 53 Total Protein 8.8 H Albumin 4.9 Globulin 3.9 Albumin/Globulin Ratio 1.3 Lipase 29 Urine Color YELLOW Urine Clarity CLEAR Urine pH 8.5 H Ur Specific [place] 1.020 Urine Protein 30 H Urine Glucose (UA) NEGATIVE Urine Ketones NEGATIVE Urine Occult Blood NEGATIVE Urine Nitrite NEGATIVE Urine Bilirubin NEGATIVE Urine Urobilinogen 0.2 (NORMAL) Ur Leukocyte Esterase NEGATIVE Urine RBC 0-5 Urine WBC 0-3 Ur Squamous Epith Cells RARE Squamous Amorphous Sediment Few Urine Bacteria Rare Ur Microscopic Review INDICATED Urine Culture Comments NOT INDICATED - Rads (name of study) abd/pelvic CT Radiology: Prelim report reviewed (gastric wall thickening. No other acute proce ss. ), See rad report PD MEDICAL DECISION MAKING - ED course Complexity details: reviewed results (acute gastritis), re-evaluated patient (feeling better with meds. ), considered differential (upper abd pain with vomiting 2 days, now diarrhea as well. COnsider viral GE, food "poisoning", gallbladder process, pancreatitis, gastritis. He says does not feel like withdrawal and had been taking his suboxone. ), d/w patient Departure - Departure Disposition: Home, Self Care Clinical Impression: Upper abdominal pain Acute gastritis Qualifiers: Gastritis type: unspecified gastritis Gastritis bleeding: without bleeding Qualified Code(s): K29.00 - Acute gastritis without bleeding Condition: Stable Record reviewed to determine appropriate education?: Yes Instructions: ED PUD Vs Gastritis Prescriptions: Famotidine [Pepcid] 20 mg PO BID #30 tablet Lidocaine Viscous 2% [Xylocaine Viscous 2%] 5 ml PO Q4H PRN #100 ml PRN Reason: Pain Ondansetron Odt [Zofran] 4 mg TL Q6H PRN #20 tablet PRN Reason: Nausea / Vomiting Comments: Your CT scan does show some inflammation of the stomach lining consistent with gastritis. No signs of perforation or obvious ulcer per se. Your pancreas liver and gallbladder seem okay. Continue with usual medications. Decrease caffeine use some. Avoid NSAIDs. Use Tylenol. Use famotidine acid reducing medicine twice daily for a week and then once daily after that for another week or 2. Ondansetron if needed for nausea every 4-6 hours. Use antacids such as Maalox or Mylanta periodically if needed for abdominal discomfort. To that you can add the lidocaine as directed to mix with the antacids to help with the stomach pains. I would anticipate improvement over the next few days and resolved over the next week. Recheck if not better in that timeframe. I transmitted your prescriptions to [facility] in [place]. Discharge Date/Time: 02/26/21 11:30
[2021-02-26] MEDS ORDERED: KETOROLAC 15 MG/ML VIAL IVP STA (08:58)
[2021-02-26] MEDS ORDERED: SODIUM CHLORIDE 0.9% 1,000 ML IV STA (08:58)
[2021-02-26] MEDS ORDERED: ONDANSETRON 4 MG/2 ML VIAL IVP STA (08:58)
[2021-02-26] MEDS ORDERED: FAMOTIDINE 20 MG/2 ML VIAL IVP STA (08:59)
[2021-02-26] MEDS ORDERED: LIDOCAINE VISCOUS 2% 15 ML UDC MM STA (09:02)
[2021-02-26] MEDS ORDERED: MAG HYDROX/AL HYDROX/SIMETH 30 ML UDC PO STA (09:02)
[2021-02-26 09:07] LABS: BASOPHILS # (AUTO) 0.1 10^3/uL (0.0-0.1); BASOPHILS % (AUTO) 0.8 %; EOSINOPHILS # (AUTO) 0.2 10^3/uL (0.0-0.7); EOSINOPHILS % (AUTO) 1.8 %; HCT - HEMATOCRIT 49.1 % (42.0-52.0); HGB - HEMOGLOBIN 16.4 g/dL (14.0-18.0); LYMPHOCYTES # (AUTO) 2.9 10^3/uL (1.5-3.5); LYMPHOCYTES % (AUTO) 25.4 %; MEAN CORPUSCULAR HEMOGLOBIN 30.2 pg (27.0-31.0); MEAN CORPUSCULAR HGB CONC 33.4 g/dL (32.0-36.0); MEAN CORPUSCULAR VOLUME 90.4 fL (80.0-94.0); MEAN PLATELET VOLUME 11.9 fL (7.4-11.4); MONOCYTES # (AUTO) 0.9 10^3/uL (0.0-1.0); MONOCYTES % (AUTO) 7.7 %; NEUTROPHILS # (AUTO) 7.3 10^3/uL (1.5-6.6); NEUTROPHILS % (AUTO) 63.9 %; PLT - PLATELET COUNT 219 10^3/uL (130-450); RED BLOOD COUNT 5.43 10^6/uL (4.70-6.10); RED CELL DISTRIBUTION WIDTH 13.8 % (12.0-15.0); WHITE BLOOD COUNT 11.4 x10^3/uL (4.8-10.8)
[2021-02-26] MEDS ORDERED: IOVERSOL 320 100 ML VIAL IVP ONE ×2 (09:10→18:09)
[2021-02-26 09:17] LABS: ALBUMIN 4.9 g/dL (3.2-5.5); ALBUMIN/GLOBULIN RATIO 1.3 (1.0-2.2); BILIRUBIN,TOTAL 1.3 mg/dL (0.2-1.0); CALCIUM 10.4 mg/dL (8.5-10.3); TOTAL PROTEIN 8.8 g/dL (6.7-8.2)
[2021-02-26 09:34] LABS: BILIRUBIN,URINE NEGATIVE (NEGATIVE); GLUCOSE, URINE (UA) NEGATIVE (NEGATIVE); KETONES,URINE (UA) NEGATIVE (NEGATIVE); LEUKOCYTE ESTERASE, URINE NEGATIVE (NEGATIVE); NITRITE,URINE NEGATIVE (NEGATIVE); OCCULT BLOOD,URINE NEGATIVE (NEGATIVE); PH,URINE 8.5 PH (5.0-7.5); PROTEIN,URINE 30 mg/dL (NEGATIVE); UROBILINOGEN,URINE 0.2 (NORMAL) E.U./dL (NORMAL)
[2021-02-26 09:39] LABS: CLARITY,URINE CLEAR (CLEAR)
[2021-02-26 09:47] LABS: AMORPHOUS SEDIMENT,UR Few /LPF; BACTERIA,URINE Rare /HPF (None Seen); RBC,URINE 0-5 /HPF (0-5); SQUAMOUS EPITHELIAL CELL,UR RARE Squamous (<= Few); WBC,URINE 0-3 /HPF (0-3)
--- NOTE | 2021-02-26 10:01 | CT Report ---
PROCEDURE: Abdomen/Pelvis W INDICATIONS: upper abd pain and vomiting 2 days CONTRAST: IV CONTRAST: Optiray 320 ml: 100 PO CONTRAST: *NO PO CONTRAST TECHNIQUE: After the administration of IV contrast, 5 mm thick sections acquired from the diaphragms to the symp hysis. 5 mm thick coronal and sagittal reformats were acquired. For radiation dose reduction, the f ollowing was used: automated exposure control, adjustment of mA and/or kV according to patient size. COMPARISON: None. FINDINGS: Image quality: Excellent. ABDOMEN: Lung bases: Lung bases are clear. Heart size is normal. Solid organs: Diffuse fatty liver infiltration can be seen. No focal liver lesions are seen. No foc al splenic abnormality can be seen. Accessory splenules are incidentally noted along the hilum of the primary spleen. Gallbladder wall does not appear thickened. Biliary system is non dilated. Pancr eas enhances normally. No adrenal nodules. Kidneys demonstrate normal size and enhancement, without hydronephrosis. Along the posterior aspect of the left kidney, there is a water density cyst seen, which is partially exophytic and measures 1.3 cm. Incidental note is made of a circumaortic left renal vein. Peritoneum and bowel: Gastric wall thickening can be seen, particularly involving the distal stomach , as on series 3 image 33. Mild prominence of a fluid-filled duodenum can be seen, as on series 6 image 32. Bowel loops otherwise demonstrate normal wall thickness and caliber. No free fluid or air. No appen ryan can be seen, either normal or abnormal. No focal right lower quadrant inflammatory changes are se en. Nodes and vessels: No retroperitoneal or mesenteric adenopathy by size criteria. Aorta and inferior vena cava are normal in size. Miscellaneous: No ventral hernias. PELVIS: Genitourinary: Bladder wall thickness is normal. Prior left orchiectomy change can be seen, with re moval of the spermatic cord seen within the [id number] of this study. Miscellaneous: No inguinal hernias or adenopathy. Bones: No suspicious bony lesions. No vertebral body compression fractures. Mild dextroconvex scol iotic curvature is seen. IMPRESSION: Gastric wall thickening is seen. Gastritis is suspected. No findings of perforation or abscess are seen. Mild prominence of a fluid-filled duodenum can be seen. No appendix can be seen, either normal or abnormal. Incidental note is made of: Fatty liver infiltration Accessory splenules Water density renal cyst Circumaortic left renal vein Prior left orchiectomy Reviewed by: Onur Lewis MD on 02/26/2021 9:00 AM [facility] Approved by: Onur Lewis MD on 02/26/2021 9:00 AM [facility] Station ID: [id number]
[2021-02-26 11:05] VITALS: BP 137/77
[2021-02-26] MEDS ORDERED: ACETAMINOPHEN 325 MG TABLET PO STA (11:11)
== END 2021-02-26 11:30 | disposition home or self-care (01) ==
LOC: ED 08:23
DX: K29.00 Acute gastritis without bleeding (principal); F17.200 Nicotine dependence, unspecified, uncomplicated
CPT/HCPCS: 36415; 74177; 80053; 81001; 83690; 85025; 96361; 96374; 96375; 99283; 99284; A9270; Q9967; 81003; 87086

== ENCOUNTER 2021-08-26 20:31 | Emergency (ER) | payer MEDICARE, MEDICAID ==
--- NOTE | 2021-08-26 21:30 | ED Physician Documentation ---
PD HPI BACK PAIN - Stated complaint Stated Complaint: BACK PX - Chief complaint Chief Complaint: Back Pain - History obtained from History obtained from: Patient - History of Present Illness Timing - onset: How many days ago (5) Timing - duration: Days (5) Timing - details: Gradual onset, Constant, Waxing and waning Pain level now: 8 Location: Lower, Right Quality: Pain, Spasm Associated symptoms: No: Weakness, Numbness, Incontinent of urine, Unable to urinate, Incontinent of stool Improves with: Position Worsened by: Movement, Other (rest (patient says pain and stiffness seem worse after prolonged periods of rest)) Contributing factors: Lifting Similar symptoms before: Has not had sx before Recently seen: Not recently seen - Additional information Additional information: c/o right low back pain radiating down the RLE since 5 days ago. 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 He says the pain seems to have levelled off, possibly slightly improved compared to yesterday. He denies h/o similar pain. He has been taking ibuprofen and acetaminophen without adequate relief. Review of Systems Constitutional: denies: Fever : denies: Unable to Void, Incontinent Musculoskeletal: reports: Back pain Neurologic: denies: Focal weakness, Numbness PD PAST MEDICAL HISTORY - Past Medical History Cardiovascular: None Respiratory: Asthma Neuro: None Endocrine/Autoimmune: None Musculoskeletal: Chronic back pain - Past Surgical History Past Surgical History: Yes General: Appendectomy - Present Medications Home Medications: Ambulatory Orders Medication Instructions Recorded Confirmed Buprenorphine HCl/Naloxone HCl 1 each SL DAILY 04/16/18 09/13/20 [Suboxone 8-2 mg Sl tab] Famotidine [Pepcid] 20 mg PO BID #30 tablet 02/26/21 Lidocaine Viscous 2% [Xylocaine 5 ml PO Q4H PRN #100 ml 02/26/21 Viscous 2%] Ondansetron Odt [Zofran] 4 mg TL Q6H PRN #20 tablet 02/26/21 Cyclobenzaprine [Flexeril] 10 mg PO TID PRN 6 Days #14 tablet 08/26/21 HYDROcod/ACETAM 5/325 [[place] 5/325] 1 - 2 tablet PO Q6H PRN #10 tablet 08/26/21 - Allergies Allergies/Adverse Reactions: Allergies Allergy/AdvReac Type Severity Reaction Status Date / Time No Known Drug Allergies Allergy Verified 08/26/21 20:38 - Social History Does the pt smoke?: Yes Smoking Status: Current every day smoker Does the pt drink ETOH?: No Does the pt have substance abuse?: No - Immunizations Immunizations are current?: Yes Immunizations: TDAP >10years/unknown - POLST Patient has POLST: No PD ED PE NORMAL - Vitals Vital signs reviewed: Yes - General General: Alert and oriented X 3, Well developed/nourished, Other (standing at bedside, prefers to stand as positional component to the pain. He appears to be uncomfortable due to the back pain) - Back Back: No spinal TTP, Other (no spinal TTP , no paraspinal TTP) - Extremities Extremities: No edema - Neuro Neuro: No motor deficit (5/5 bilateral plantarflexion), No sensory deficit (LTS intact BLE), Other (2+/4 bilateral patellar DTR without clonus) Results - Vitals Vitals: Vital Signs - 24 hr 08/26/21 08/26/21 08/26/21 20:35 22:09 22:14 Temperature 36.3 C L 37 C Heart Rate 74 86 Respiratory 16 20 Rate Blood Pressure 151/96 H 140/97 H O2 Saturation 99 98 Oxygen O2 Source Room air PD MEDICAL DECISION MAKING - ED course Complexity details: considered differential, d/w patient ED course: c/o right LBP radiating down RLE after heavy lifting, s/o sciatica. No "red flags" such as fever, numbness, weakness, bowel/bladder incontinence. He says he has not had this pain before. He is given flexeril in ED and take-home packs of both flexeril and vicodin after discussion regarding suboxone and his h/o misuse of opiates (see below). I discussed with patient that he will likely benefit from rest and time off from work, but he says he is scheduled to return Saturday and is adamant about returning to work as scheduled, declines work note. I recommended he reconsider returning to work unless he is pain-free without the prescribed medications, as exacerbation of the pain is likely if he returns to work unless this is the case. I am prescribing a short course of short-acting opioid pain medication for this patient. I have reviewed the patients [employer] which indicates regular prescriptions for suboxone from single prescriber. [facility] does not show any other CDS filled. I d/w patient the risks of opiate prescription with h/o misuse of such medications and patient indicates to me that he understands this risk but that OTC medications have not adequately controlled his pain. I am comfortable with prescribing a short course of hydrocodone/acetaminophen as well as cyclobenzaprine. I have discussed that the opioids are for short term therapy only, and will not be refilled from the ED Departure - Departure Disposition: Home, Self Care Clinical Impression: Sciatica Qualifiers: Laterality: right Qualified Code(s): M54.31 - Sciatica, right side Condition: Good Instructions: ED Sciatica Follow-Up: Holden Nayak MD [Primary Care Provider] - Prescriptions: Cyclobenzaprine [Flexeril] 10 mg PO TID PRN 6 Days #14 tablet PRN Reason: Spasms HYDROcod/ACETAM 5/325 [Starke 5/325] 1 - 2 tablet PO Q6H PRN #10 tablet PRN Reason: Pain Comments: Prescriptions for hydrocodone/acetaminophen (narcotic pain medication) and cyclobenzaprine (muscle relaxant) have been electronically submitted to [facility] pharmacy in [place]. I am prescribing a short course of narcotic pain medication for you. These are potentially dangerous and addictive medications that should be used carefully. These medications may constipate you. Take an fiep-pps-tqotplv stool softener (docusate) twice daily with plenty of water while taking these medications. If you go 24 hours without a bowel movement, take [id number] miralax, per package instructions. Do not drink or drive while taking these medications. If you received narcotic or sedating medications while in the emergency department, do not drive for 24 hours. Store this medication in a safe, secure place and out of reach of children. It is a violation of federal law to give or sell this medication to another person or to use in a manner other than prescribed. The ED will not refill narcotic prescriptions, including prescriptions lost or stolen. To dispose of unwanted medications: 1. [facility] [address] in [place] has a medication drop box. They accept prescription medications (in pill form) Saturday through Saturday 9:00 a.m. to 5:00 p.m. 2. The [facility] [employer] accepts prescription medications (in pill form only) for disposal year round. Call for more information. 3. Contact the [facility] for the next [employer] sponsored prescription drug collection event. , [phone], or [phone]; Discharge Date/Time: 08/26/21 22:14
[2021-08-26] MEDS ORDERED: CYCLOBENZAPRINE 10 MG Prepack 2 PO PRN (21:52)
[2021-08-26] MEDS ORDERED: HYDROcod/ACETAM 5/325 MG TABLET PO STA (21:52)
[2021-08-26] MEDS ORDERED: HYDROcod/ACET 5/325 Prepack 4 PO STA (21:52)
[2021-08-26 22:15] VITALS: BP 140/97
== END 2021-08-26 22:14 | disposition home or self-care (01) ==
LOC: ED 20:31
DX: M54.31 Sciatica, right side (principal); F17.200 Nicotine dependence, unspecified, uncomplicated
CPT/HCPCS: 99282; A9270

== ENCOUNTER 2021-10-22 01:39 | Emergency (ER) | payer MEDICARE, MEDICAID ==
--- NOTE | 2021-10-22 02:03 | ED Physician Documentation ---
PD HPI BACK PAIN - Stated complaint Stated Complaint: L BACK & LEG PX - Chief complaint Chief Complaint: Back Pain - History obtained from History obtained from: Patient - History of Present Illness Timing - onset: Today Timing - duration: Hours Timing - details: Gradual onset, Constant Pain level now: 10 Location: Left Quality: Pain, Spasm Associated symptoms: No: Fever, Weakness, Numbness, Incontinent of urine, Unable to urinate, Hematuria, Incontinent of stool Improves with: Rest Worsened by: Movement Recently seen: Other (T+R 2 months ago for right LBP) - Additional information Additional information: c/o gradual onset left low back pain radiating down LLE since earlier today; no inciting event. Pain is worse with movement, weight-bearing. Denies injury. He was T+R from this ED (by me) 2 months ago for similar symptoms although at that time the symptoms were right-sided. He says he followed up with his PMD and was told to stop taking the medications prescribed (vicodin and flexeril), was told to rest and no other specific recommendations given (per patient). Review of Systems Constitutional: denies: Fever, Chills, Sweats GI: denies: Abdominal Pain : denies: Unable to Void, Incontinent Skin: reports: Reviewed and negative Musculoskeletal: reports: Back pain (left low back pain) Neurologic: denies: Focal weakness, Numbness PD PAST MEDICAL HISTORY - Past Medical History Past Medical History: Yes Cardiovascular: None Respiratory: Asthma Neuro: None Endocrine/Autoimmune: None Musculoskeletal: Chronic back pain - Past Surgical History Past Surgical History: Yes General: Appendectomy - Present Medications Home Medications: Ambulatory Orders Medication Instructions Recorded Confirmed Buprenorphine HCl/Naloxone HCl 1 each SL DAILY 04/16/18 09/13/20 [Suboxone 8-2 mg Sl tab] Famotidine [Pepcid] 20 mg PO BID #30 tablet 02/26/21 Lidocaine Viscous 2% [Xylocaine 5 ml PO Q4H PRN #100 ml 02/26/21 Viscous 2%] Ondansetron Odt [Zofran] 4 mg TL Q6H PRN #20 tablet 02/26/21 Cyclobenzaprine [Flexeril] 10 mg PO TID PRN 6 Days #14 tablet 08/26/21 HYDROcod/ACETAM 5/325 [[place] 5/325] 1 - 2 tablet PO Q6H PRN #10 tablet 08/26/21 Cyclobenzaprine [Flexeril] 10 mg PO TID PRN #20 tablet 10/22/21 Oxycodone HCl/Acetaminophen 1 - 2 each PO Q6H PRN #14 tablet 10/22/21 [Percocet 5-325 mg Tablet] - Allergies Allergies/Adverse Reactions: Allergies Allergy/AdvReac Type Severity Reaction Status Date / Time No Known Drug Allergies Allergy Verified 10/22/21 01:54 - Social History Does the pt smoke?: Yes Smoking Status: Current every day smoker Does the pt drink ETOH?: No Does the pt have substance abuse?: No - Immunizations Immunizations are current?: Yes Immunizations: TDAP >10years/unknown - POLST Patient has POLST: No PD ED PE NORMAL - Vitals Vital signs reviewed: Yes - General General: Alert and oriented X 3, Well developed/nourished, Other (appears to be in painful discomfort) - Back Back: No CVA TTP, No spinal TTP - Derm Derm: Normal color, Warm and dry, No rash - Extremities Extremities: No tenderness to palpate, No edema - Neuro Neuro: No motor deficit (5/5 left foot dorsi/plantarflexion), No sensory deficit (LTS intact LLE) Results - Vitals Vitals: Oxygen O2 Source Room air - Rads (name of study) lumbar xrays Radiology: EMP read indepedently, EMP read contemporaneously, Other (radiologist's interpretation of xrays were not recevied until more than four hours after the xrays were performed) PD MEDICAL DECISION MAKING - ED course Complexity details: reviewed old records, reviewed results, re-evaluated patient, considered differential, d/w patient ED course: c/o left low back pain radiating down LLE. Denies injury. He appears to be in painful distress on arrival, initially angry and using expletives during HPI until I ask him to please refrain from this. He is given PO decadron, flexeril, and 1mg IM dilaudid with some improvement by the time of reevaluation. I do not see any acute findings nor abnormalities that would explain his pain; note that the patient was T+R before radiologist's interpretation of xrays was available, as the reading was not performed for more than four hours from when the xrays were done. Patient had increase in his pain when he tried to stand and thus a second dose of IM dilaudid was given (this time a 2mg dose was given). I discussed with patient that his symptoms are c/w sciatica which would not be diagnosed on ER studies such as pain-film xrays. I advised him to follow up with PMD for reevaluation. Prescriptions for percocet and flexeril were transmitted to his pharmacy of choice; he says [facility] but was unhappy with them recently and wanted me to send the prescriptions to [facility] pharmacy in [place]. I am prescribing a short course of short-acting opioid pain medication for this patient. I have reviewed the patients recent prescription medication fills which indicate regular prescriptions for suboxone from single prescriber as well as the prescriptions for vicodin and flexeril that I had provided in July from his previous ED visit. For some reason I do not see an [facility] form update since his previous (Jul, 2021) ED visit, but I am able to access his outpatient medication filled prescriptions as noted. I d/w patient the risks of opiate prescription with h/o misuse of such medications and patient indicates to me that he understands this risk but that OTC medications have not adequately controlled his pain. I am comfortable with prescribing a short course of oxycodone/acetaminophen as well as cyclobenzaprine. I have discussed that the opioids are for short term therapy only, and will not be refilled from the ED Departure - Departure Disposition: 01 Home, Self Care Clinical Impression: Sciatica Qualifiers: Laterality: left Qualified Code(s): M54.32 - Sciatica, left side Condition: Good Instructions: ED Sciatica Prescriptions: Cyclobenzaprine [Flexeril] 10 mg PO TID PRN #20 tablet PRN Reason: Spasms Oxycodone HCl/Acetaminophen [Percocet 5-325 mg Tablet] 1 - 2 each PO Q6H PRN #14 tablet PRN Reason: pain Comments: The xrays did not have any findings that would suggest the cause of your back pain. As we discussed, many causes of low back pain , particularly sciatica, are caused by nerve impingement that would not show on xrays. Follow up with your primary care provider for reevaluation; further tests might be indicated. Prescriptions for percocet (narcotic pain medication) and cyclobenzaprine (muscle relaxant) have been electronically submitted to [facility] in [place]. Forms: Activity restrictions Discharge Date/Time: 10/22/21 04:15
[2021-10-22] MEDS ORDERED: HYDROmorphone 1 MG/ML CARPUJECT IM STA (02:19)
[2021-10-22] MEDS ORDERED: CYCLOBENZAPRINE 10 MG TABLET PO STA (02:19)
[2021-10-22] MEDS ORDERED: CHERRY SYRUP 10 ML UDC PO ONE (02:19)
[2021-10-22] MEDS ORDERED: DEXAMETHASONE 10 MG/ML VIAL PO STA (02:19)
[2021-10-22] MEDS ORDERED: HYDROmorphone 2 MG/ML VIAL IM STA (04:09)
[2021-10-22 04:46] VITALS: BP 144/109
--- NOTE | 2021-10-22 08:40 | XRAY Report ---
PROCEDURE: Lumbar Spine 2 View INDICATIONS: low back pain TECHNIQUE: 2 views of the lumbar spine were acquired. COMPARISON: None. FINDINGS: Bones: 5 [id number] vertebrae are present. There is normal bony alignment. Mild rightward curv ature without subluxation, potentially due to muscle spasm. No vertebral body compression fractures. Mild multilevel endplate spurring. Disc spaces are well-maintained. No suspicious bony lesions. Soft tissues: Overlying bowel gas pattern is normal. No suspicious soft tissue calcifications. IMPRESSION: 1. Mild multilevel endplate spurring. 2. Final interpretation is concordant with preliminary report. Reviewed by: Anny Robin MD on 10/22/2021 8:38 AM PDT Approved by: Anny Robin MD on 10/22/2021 8:38 AM PDT Station ID: [id number]
== END 2021-10-22 04:15 | disposition home or self-care (01) ==
LOC: ED 01:39
DX: M54.32 Sciatica, left side (principal); F17.200 Nicotine dependence, unspecified, uncomplicated
CPT/HCPCS: 72100; 96372; 99282; 99283; A9270; J1170

== ENCOUNTER 2022-03-26 11:26 | Emergency (ER) | payer MEDICARE, MEDICAID ==
[2022-03-26] MEDS ORDERED: BUPRENORPHINE 0.3 MG/ML VIAL IM ONE (15:00)
--- NOTE | 2022-03-26 15:08 | ED Physician Documentation ---
History of Present Illness - Stated complaint Stated Complaint: WITHDRAW - Chief complaint Chief Complaint: General - Additonal information Additional information: 47-year-old male who has a history of opioid abuse presents to the emergency department hoping for buprenorphine injection. He reports that he is a daily Suboxone user. But he and his traveled to [place] last week for the holidays and the patient's brother gave him some fentanyl and Cameron pills which she has been smoking for the last week. He reports his brother told him he could not get addicted if he smoked it. He [place] and he was very remorseful for the use and reports that he flushed the pills down the toilet. He last took Suboxone yesterday. He is afraid to take it again for fear of going into withdrawals. He has had some nausea or vomiting. Denies self-harm. Reports he is beginning to have nightmares and is very afraid to go through the withdrawal symptoms he had about 6 months ago. Review of Systems GI: reports: Nausea, Vomiting PD PAST MEDICAL HISTORY - Past Medical History Cardiovascular: None Respiratory: Asthma Neuro: None Endocrine/Autoimmune: None Musculoskeletal: Chronic back pain - Past Surgical History Past Surgical History: Yes General: Appendectomy - Present Medications Home Medications: Ambulatory Orders Medication Instructions Recorded Confirmed Buprenorphine HCl/Naloxone HCl 1 each SL DAILY 04/16/18 09/13/20 [Suboxone 8-2 mg Sl tab] Famotidine [Pepcid] 20 mg PO BID #30 tablet 02/26/21 Lidocaine Viscous 2% [Xylocaine 5 ml PO Q4H PRN #100 ml 02/26/21 Viscous 2%] Ondansetron Odt [Zofran] 4 mg TL Q6H PRN #20 tablet 02/26/21 Cyclobenzaprine [Flexeril] 10 mg PO TID PRN 6 Days #14 tablet 08/26/21 HYDROcod/ACETAM 5/325 [[place] 5/325] 1 - 2 tablet PO Q6H PRN #10 tablet 08/26/21 Cyclobenzaprine [Flexeril] 10 mg PO TID PRN #20 tablet 10/22/21 Oxycodone HCl/Acetaminophen 1 - 2 each PO Q6H PRN #14 tablet 10/22/21 [Percocet 5-325 mg Tablet] - Allergies Allergies/Adverse Reactions: Allergies Allergy/AdvReac Type Severity Reaction Status Date / Time No Known Drug Allergies Allergy Verified 03/26/22 11:37 - Social History Does the pt smoke?: Yes Smoking Status: Current every day smoker Does the pt drink ETOH?: No Does the pt have substance abuse?: No - Immunizations Immunizations are current?: Yes Immunizations: TDAP >10years/unknown - POLST Patient has POLST: No PD ED PE NORMAL - General General: Alert and oriented X 3. No: No acute distress (Anxious) - Cardiac Cardiac: RRR, No murmur, No gallop - Respiratory Respiratory: No respiratory distress, Clear bilaterally - Abdomen Abdomen: Normal bowel sounds, Soft, Non tender - Back Back: No CVA TTP, No spinal TTP - Derm Derm: Normal color, Warm and dry, No rash - Extremities Extremities: No deformity, No tenderness to palpate, Normal ROM s pain - Neuro Neuro: Alert and oriented X 3, clock mechanic 2-12 intact Eye Opening: Spontaneous Motor: Obeys Commands Verbal: Oriented GCS Score: 15 Results - Vitals Vitals: Vital Signs - 24 hr 03/26/22 11:32 Temperature 36.0 C L Heart Rate 71 Respiratory 24 Rate Blood Pressure 179/105 H O2 Saturation 92 Oxygen O2 Source Room air PD Medical Decision Making - ED course Complexity details: reviewed results, re-evaluated patient, considered differential, d/w patient ED course: 47-year-old male presents to the emergency department requesting a buprenorphine injection. He has a history of opioid abuse and has been on Suboxone for quite some time. Typically takes 8 mg sublingually. He went to [place] for the holidays and began smoking [place] and fentanyl. When he [place] to the [place] he flushed all the pills but is afraid to go into withdrawal again. He last took Suboxone yesterday. Patient seems remorseful. We discussed that we would give him the buprenorphine here in the emergency department but he could begin taking the Suboxone as soon as possible. Departure - Departure Disposition: 01 Home, Self Care Clinical Impression: Opioid abuse with withdrawal Condition: Stable Record reviewed to determine appropriate education?: Yes Instructions: ED Withdrawal Narcotic Comments: [place] you can be begin taking the Suboxone when you get home. Here in the emergency department we did give you the buprenorphine to help with opioid wi thdrawal. I encourage you to abstain from all opioid withdrawal. You can become addicted by swallowing it, smoking it and injecting it. Return to the ER for worsening symptoms
[2022-03-26 15:32] VITALS: BP 155/110
== END 2022-03-26 15:33 | disposition home or self-care (01) ==
LOC: ED 11:26
DX: F11.13 Opioid abuse with withdrawal (principal); Z79.891 Long term (current) use of opiate analgesic
CPT/HCPCS: 96372; 99283; J0592